=== PATIENT | female | born 1950 | race Caucasian/White ===

== ENCOUNTER → 2018-01-29 | Outpatient (CLI) | payer MEDICARE ==
[~2018-01-29] MED LIST: BACLOFEN10 MG PO; CITALOPRAM HBR40 MG PO; DILTIAZEM ER240 MG PO; ENALAPRIL-HCTZ1 EACH PO; LEVOTHYROXINE50 MCG PO; MELATONIN10 M1 PO; METOPROLOL SUCC50 MG PO; SERTRALINE HCL100 MG PO; TEMAZEPAM15 MG PO; TRAZODONE HCL100 MG PO; TYLENOL WITH C1 EACH PO; ULTRAM50 MG PO; XARELTO20 MG PO
--- NOTE | 2018-01-29 12:03 | Diagnostic Imaging Report ---
PROCEDURE:C-SPINE COMPLETE COMPARISON:03/31/14 INDICATIONS:LEFT ARM PAIN AND HAND NUMBNESS FINDINGS: The lateral view is visualized from the skull base to C6. Limited for evaluation of C7-T1 on lateral view. The vertebral bodies are well-aligned. The vertebral body heights are maintained. There are no fractures, lytic or blastic lesions. Multilevel degenerative changes of cervical spine. The C1/C2-odontoid interval is normal. The pre-vertebral soft tissues are normal. CONCLUSION: No evidence of acute fracture or subluxation. Multilevel degenerative changes. Dictated by: Radames Lin M.D. on 01/29/2018 at 12:09 Electronically approved by: Radames Lin M.D. on 01/29/2018 at 12:09
== END ==
LOC: RAD 10:48
DX: M54.2 Cervicalgia (principal); M54.12 Radiculopathy, cervical region; M25.562 Pain in left knee
CPT/HCPCS: 72050

== ENCOUNTER → 2018-02-01 | Outpatient (CLI) | payer MEDICARE ==
--- NOTE | 2018-02-01 11:16 | Diagnostic Imaging Report ---
Left knee MRI without contrast. History: Knee pain. Trauma. Decreased range of motion. Pain not responding to conservative management. Comparison: None. Technique: Multiplanar multi-sequence MRI of the knee without contrast. Findings: Medial compartment: There is a complex tear involving the posterior horn and body segments of the medial meniscus best seen on series 3 image 30. Meniscal tissue is displaced to the periphery. The medial compartmental articular cartilage surfaces are thinned with regions of fraying and fissuring. There is reactive bone marrow edema at the periphery of the medial tibial plateau. The medial collateral ligament complex is intact. Lateral compartment: No meniscal tear or cartilage abnormality. The LCL complex is normal. Intercondylar notch: The ACL and PCL are intact. Patellofemoral compartment: No chondromalacia or patellar dislocation. Extensor mechanism: The quadriceps and patellar tendons are normal. Other findings: There is a joint effusion and synovitis. There is no acute fracture, subluxation or avascular necrosis. There are what appear to be small bone infarcts in the proximal tibia. This is best seen on series 5 image 13 through 15. 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 Signed by: Dr. Sancho Reynoso M.D. on 02/01/2018 11:12 AM
--- NOTE | 2018-02-01 11:44 | Diagnostic Imaging Report ---
EXAM: DXA BONE DENSITY INDICATIONS: MENOPAUSAL COMPARISON: None. FINDINGS: Proximal left femur bone mineral density (BMD) (g/cm2):0.919 Femur T-score (standard deviation relative to young adult mean BMD): -0.2 Femur Z-score (standard deviation relative to age-matched control group):1.3 Lumbar bone mineral density (BMD) (g/cm2):1.005 Lumbar T-score (standard deviation relative to young adult mean BMD): -0.4 Lumbar Z-score (standard deviation relative to age-matched control group):1.7 Change since prior exam (%): Femur:Not applicable. Spine:Not applicable. Change since oldest prior exam (%): Femur:Not applicable. Spine:Not applicable. World Health Organization Classification: *The Z-score is provided for informational purposes. The T-score is preferable for clinical decisions. When comparing exams, a change of >4% is considered statistically significant. SUGGESTED RECOMMENDATIONS: Normal \T\ Osteopenia:Consideration should be given to use of calcium supplementation, daily multiple vitamins and adequate exercise, as preventive measures against osteoporosis, if clinically indicated. Osteoporosis \T\ Severe Osteoporosis:In addition to the above, consideration should be given to medical therapy against osteoporosis, if clinically indicated. CONCLUSION: 1. Bone mineral density in the left femur is classified as normal. Fracture risk is not increased. 2. Bone mineral density in the spine is classified as normal. Fracture risk is not increased. Baldomero Salas D.O. Dictated by: Baldomero Salas D.O. on 02/01/2018 at 10:14 Electronically approved by: Baldomero Salas D.O. on 02/01/2018 at 11:50
== END ==
LOC: MRI 08:26
DX: M89.9 Disorder of bone, unspecified (principal); M25.562 Pain in left knee
CPT/HCPCS: 77080

== ENCOUNTER → 2019-01-01 | Outpatient (CLI) | payer MEDICARE ==
[~2019-01-01] MED LIST changes: +BENADRYL25 M1 PO; +IMODIUM2 MG PO; +LEXAPRO10 MG PO
--- NOTE | 2019-01-01 14:41 | Diagnostic Imaging Report ---
EXAMINATION: CHEST 2 VIEWS INDICATION: Chest congestion COMPARISON: None FINDINGS: TUBES and LINES: None. LUNGS: The lungs are moderately inflated. No focal consolidation or pulmonary edema. PLEURA: No pleural effusion or pneumothorax. HEART AND MEDIASTINUM: The cardiomediastinal silhouette is normal in size and contour. BONES AND SOFT TISSUES: No acute fracture or dislocation. UPPER ABDOMEN: No free air under the diaphragm. IMPRESSION: No focal pneumonia or pulmonary edema. Signed by: Ish Reddy MD on 01/01/2019 2:37 PM
== END ==
LOC: RAD 13:16
DX: R09.89 Other specified symptoms and signs involving the circulatory and respiratory systems (principal)
CPT/HCPCS: 71046